=== PATIENT | female | born 1985 | race Two or more races ===

== ENCOUNTER 2019-10-30 08:34 | Outpatient (CLI) | payer OTHER | END 2019-10-30 08:45 | disposition home or self-care (01) | LOC: SONOGRAMA 08:34 | PROVIDERS: ATTEND Pathology Anatomic Pathology & Clinical Pathology | DX: E04.1 Nontoxic single thyroid nodule (principal) ==

== ENCOUNTER 2022-11-16 05:10 | Day surgery (SDC) | payer OTHER ==
[2022-11-16] MEDS ORDERED: IBU600 MG PO (09:15)
[2022-11-16] MEDS ORDERED: MORGIDOX100 MG PO (09:15)
== END 2022-11-16 13:00 | disposition home or self-care (01) ==
LOC: CIR.AMB 05:10
PROVIDERS: ATTEND Obstetrics & Gynecology
DX: N92.1 Excessive and frequent menstruation with irregular cycle (principal); D25.9 Leiomyoma of uterus, unspecified; N84.0 Polyp of corpus uteri; D25.0 Submucous leiomyoma of uterus; Z20.822 Contact with and (suspected) exposure to COVID-19

== ENCOUNTER 2025-01-21 12:51 | Emergency (ER) | payer OTHER ==
[~2025-01-21] VITALS: Ht 167.6 cm; Wt 55.8 kg
[~2025-01-21 12:51] MED LIST: IBU600 MG PO; MORGIDOX100 MG PO
[2025-01-21 14:05] VITALS: BP 114/72; O2SAT 100
[2025-01-21 16:38] LABS: BASO % 0.6 % (0.1-1.2); EOS # 0.09 (0.04-0.54); EOS % 1.3 % (0.7-7.0); LYMPH # 1.57 (1.18-3.74); LYMPH % 23.1 % (19.3-53.1); MEAN PLATELET VOLUME 10.30 fl (9.4-12.4); MONO # 0.41 (0.24-0.82); MONO % 6.0 % (4.7-12.5); NEUT # 4.69 (1.56-6.13); NEUT % 68.9 % (34.0-71.1); RED CELL DISTRIBUTION WIDTH 24.3 % (11.6-14.4)
[2025-01-21 17:01] LABS: INR 1.0
[2025-01-21 17:08] LABS: ALT/SGPT 25.0 U/L (12-78); AST/SGOT 15.0 U/L (15-37); BILIRUBIN TOTAL 0.26 mg/dL (0.3-1.2); BUN CREA RATIO 17.0 (7.0-25.0); CREATININE SERUM 0.64 mg/dL (0.55-1.02); GFR 103.31; GLOBULINA 3.9 G/DL (2.4-3.5); GLUCOSE FASTING 93.0 mg/dL (65-100); OSMOLALITY SERUM 277.0 MOSM/KG (275-295)
[2025-01-21 17:19] LABS: URINE APPEARANCE Clear; URINE BILIRRUBIN Negative (NEGATIVE); URINE BLOOD Negative; URINE COLOR Yellow; URINE GLUCOSE Negative (NEGATIVE); URINE KETONE Negative (NEGATIVE); URINE LEUKOCYTE Negative; URINE NITRATE Negative; URINE PROTEIN Negative (NEGATIVE); URINE UROBILINOGEN 1.0 E.U./dl
[2025-01-21 17:29] LABS: URINE BACTERIA 28.7 uL (0.0-1933); URINE EPITHELIAL CELLS 1.5 uL (0.0-38.8); URINE RBC 3.2 uL (0.0-20.8); URINE WBC 2.5 uL (0.0-23.2)
[2025-01-21 17:40] LABS: URINE CAST 0.00 uL (0.0-1.40)
== END 2025-01-21 20:43 | disposition home or self-care (01) ==
LOC: ER 12:51
PROVIDERS: General Practice
DX: R00.2 Palpitations (principal); Z88.8 Allergy status to other drugs, medicaments and biological substances